=== PATIENT | female | born 1970 | race Hispanic/Latino ===

== ENCOUNTER 2022-12-08 15:28 | Emergency (ER) | payer OTHER ==
[~2022-12-08] VITALS: Ht 165.1 cm; Wt 57.6 kg
[2022-12-08] MEDS ORDERED: CYCL5TAB PO (19:34)
[2022-12-08] MEDS ORDERED: METH4TAB3 PO (19:34)
[2022-12-08] MEDS ORDERED: ACET-2079 PO (19:34)
[2022-12-08] MEDS ORDERED: IBUP-2070 PO (19:34)
[2022-12-08 19:44] VITALS: BP 135/76
== END 2022-12-08 19:47 | disposition home or self-care (01) ==
LOC: EDH 15:28
DX: S43.492A Other sprain of left shoulder joint, initial encounter (principal); Z90.710 Acquired absence of both cervix and uterus; Z88.1 Allergy status to other antibiotic agents; Z88.6 Allergy status to analgesic agent; Z88.8 Allergy status to other drugs, medicaments and biological substances; X58.XXXA Exposure to other specified factors, initial encounter; Y93.89 Activity, other specified; Y92.89 Other specified places as the place of occurrence of the external cause; Y99.8 Other external cause status
CPT/HCPCS: 29105; 73030

== ENCOUNTER 2022-12-26 21:58 | Emergency (ER) | payer OTHER ==
[~2022-12-26] VITALS: Ht 165.1 cm; Wt 59.9 kg
[~2022-12-26 21:58] MED LIST: ACET-2079 PO; CYCL5TAB PO; IBUP-2070 PO; METH4TAB3 PO
[2022-12-26 22:00] VITALS: BP 159/96
== END 2022-12-27 01:24 | disposition left against medical advice (07) ==
LOC: EDH 21:58
DX: R51.9 Headache, unspecified (principal); Z53.21 Procedure and treatment not carried out due to patient leaving prior to being seen by health care provider
CPT/HCPCS: 99281

== ENCOUNTER 2023-01-29 10:28 | Emergency (ER) | payer OTHER ==
[~2023-01-29] VITALS: Ht 157.5 cm; Wt 65.8 kg
[2023-01-29 10:29] VITALS: BP 131/75; PULSE 72; RESP 18
[2023-01-29] MEDS ORDERED: LIDOCAINE 5% TOPICAL PATCH TP ONE (11:00)
== END 2023-01-29 11:51 | disposition home or self-care (01) ==
LOC: EDH 10:28
DX: G89.29 Other chronic pain (principal); M25.512 Pain in left shoulder; Z79.899 Other long term (current) drug therapy; Z88.1 Allergy status to other antibiotic agents; Z88.8 Allergy status to other drugs, medicaments and biological substances
CPT/HCPCS: 99281; 99282

== ENCOUNTER 2023-10-30 16:46 | Emergency (ER) | payer OTHER ==
[~2023-10-30] VITALS: Ht 165.1 cm; Wt 66.2 kg
[~2023-10-30 16:46] MED LIST changes: -ACET-2079 PO; -CYCL5TAB PO; +IBUP-1493 PO; -IBUP-2070 PO; -METH4TAB3 PO
[2023-10-30 17:21] LABS: BASOPHILS # (AUTO) 0.03 K/uL (0.00-0.20); BASOPHILS % (AUTO) 0.5 % (0.0-5.0); EOSINOPHILS # (AUTO) 0.09 K/uL (0.00-0.70); EOSINOPHILS % (AUTO) 1.6 % (0.0-8.0); HEMATOCRIT 40.4 % (36-48); IMMATURE GRANULOCYTE ABSOLUTE 0.01 K/uL (0-1); LYMPHOCYTES # (AUTO) 1.4 K/uL (1.0-4.8); LYMPHOCYTES % (AUTO) 24.8 % (21.0-51.0); MEAN CORPUSCULAR HEMOGLOBIN 30.3 pg (27.0-33.0); MEAN CORPUSCULAR HGB CONC 33.9 g/dL (32.0-36.0); MEAN CORPUSCULAR VOLUME 89.4 fL (79-99); MONOCYTES # (AUTO) 0.4 K/uL (0.1-1.0); MONOCYTES % (AUTO) 7.3 % (3.0-13.0); NEUTROPHILS # (AUTO) 3.6 K/uL (1.8-7.7); NEUTROPHILS % (AUTO) 65.6 % (40.0-77.0); PLATELET COUNT (AUTO) 231 K/uL (130-400); RED BLOOD CELL COUNT(AUTO) 4.52 MIL/uL (4.00-5.50); RED CELL DISTRIBUTION WIDTH 12.5 % (11.0-15.5); WHITE BLOOD COUNT (AUTO) 5.5 K/uL (4.8-10.8)
[2023-10-30 17:33] LABS: CREATININE 0.7 mg/dL (0.5-1.0); POTASSIUM 3.8 mmol/L (3.5-5.1)
[2023-10-30 17:37] LABS: ALBUMIN 3.6 g/dL (3.5-5.0); BILIRUBIN,TOTAL 0.5 mg/dL (0.2-1.0); TOTAL PROTEIN, SERUM 8.2 g/dL (6.0-8.3)
[2023-10-30 19:20] LABS: APPEARANCE,URINE CLEAR (CLEAR); BILIRUBIN,URINE NEGATIVE (NEGATIVE); COLOR,URINE YELLOW (YELLOW); GLUCOSE, URINE (UA) NEGATIVE (NEGATIVE); KETONES,URINE NEGATIVE (NEGATIVE); LEUKOCYTE ESTERASE ,URINE NEGATIVE Leu/uL (NEGATIVE); NITRATE,URINE NEGATIVE (NEGATIVE); OCCULT BLOOD,URINE MODERATE (NEGATIVE); PH,URINE 5.5 (5.0-8.0); PROTEIN,URINE 10 mg/dL (NEGATIVE); UROBILINOGEN,URINE 0.2 mg/dL (0.2-1.0)
[2023-10-30 19:50] LABS: ADD UA MICROSCOPIC YES
[2023-10-30 19:52] LABS: MUCUS,URINE MOD LPF (None Seen); SQUAMOUS EPITHELIAL CELL,UR RARE /HPF (0-2); WBC,URINE 0-1 /HPF (0-1)
[2023-10-30] MEDS ORDERED: PANT40TA PO (20:06)
[2023-10-30] MEDS ORDERED: ONDA4TAB10 PO (20:07)
[2023-10-30] MEDS ORDERED: L AC460C PO (20:07)
[2023-10-30] MEDS: PANTOPRAZOLE 40 MG TAB DR PO ONE (20:12)
[2023-10-30] MEDS: MAG/ALUM/SIMETH 30 ML UDCUP PO ONE (20:12)
[2023-10-30] MEDS: ONDANSETRON ODT 4MG TAB SL SCH (20:13)
[2023-10-30 20:15] VITALS: BP 138/74; PULSE 70; RESP 16; O2SAT 98
== END 2023-10-30 20:23 | disposition home or self-care (01) ==
LOC: EDH 16:46
DX: K52.9 Noninfective gastroenteritis and colitis, unspecified (principal); A08.4 Viral intestinal infection, unspecified; R11.2 Nausea with vomiting, unspecified; Z88.8 Allergy status to other drugs, medicaments and biological substances; Z90.710 Acquired absence of both cervix and uterus; Z55.6 Problems related to health literacy
CPT/HCPCS: 36415; 80053; 81001; 83690; 85025

== ENCOUNTER → 2024-06-11 | Outpatient (CLI) | payer OTHER ==
[~2024-06-11] MED LIST changes: +L AC460C PO; +ONDA-243 PO; +PANT40TA PO
--- NOTE | 2024-06-11 15:25 | HMCIMG ---
KNEE 3VWS LT REASON: LEFT KNEE PAIN TECHNIQUE: 3 views were obtained. FINDINGS: There is no evidence of fracture or dislocation. There is no joint effusion. The soft tissues appear unremarkable. There is no evidence of a radiopaque foreign body. IMPRESSION: No acute findings.
--- NOTE | 2024-06-11 16:18 | HMCIMG ---
EXAM: LUMBAR SPINE 2-3VWS REASON: BACK PAIN. COMPARISON: None. TECHNIQUE: 3 views of the lumbar spine were obtained. FINDINGS: There is normal appearance of the lumbar vertebral bodies. Disc interspace heights are preserved. Alignment is normal. There are no visible fractures. Soft tissues appear unremarkable. IMPRESSION: 1. Normal lumbar spine.
== END | disposition home or self-care (01) ==
LOC: RAH 14:50
PROVIDERS: ATTEND Internal Medicine
DX: M25.562 Pain in left knee (principal); M54.50 Low back pain, unspecified
CPT/HCPCS: 72100; 73562